=== PATIENT | female | born 1980 | race Hispanic/Latino ===

== ENCOUNTER 2018-07-28 22:25 | Emergency (ER) | payer OTHER, MEDICAID, SELFPAY ==
--- NOTE | 2018-07-28 22:28 | ED_ITS ---
HPI - Chest Pain General Chief Complaint: Chest Pain Stated Complaint: CHEST PAIN Time Seen by Provider: 07/28/18 22:27 Source: patient and family Mode of arrival: ambulatory Limitations: no limitations History of Present Illness HPI narrative: 37-year-old female morbidly obese, smoker with history of hypertension and strong cardiac history of young people in her family presents with sudden-onset left shoulder and arm pain that started about 15 minutes prior to arrival. She denies provocation or palliation. Denies dizziness, weakness or lightheadedness. She has had no nausea or vomiting. She denies shortness of breath or diaphoresis. She denies any history of the same. She denies recent travel or use control. She denies any recent overuse type injury. MD complaint: chest pain Onset (ago): minute(s) Duration: constant Onset: during rest Pain location: left chest Severity: mild Quality: aching Pain radiation: LUE Relieving factors: nothing Exacerbating factors: nothing Treatments prior to arrival chest pain: none Related Data Allergies Allergy/AdvReac Type Severity Reaction Status Date / Time No Known Drug Allergies Allergy Verified 07/28/18 23:52 Review of Systems Constitutional Denies chills, Denies fever(s), Denies lethargy and Denies weakness Eyes Denies change in vision, Denies eye discharge, Denies irritation and Denies loss of vision ENT Ears, Nose, Mouth, and Throat: Denies change in voice, Denies neck pain and Denies sore throat Cardiovascular Reports chest pain, Denies irregular heart rhythm, Denies lightheadedness, Denies palpitations, Denies dyspnea, Denies dyspnea on exertion and Denies orthopnea Respiratory Denies cough, Denies dyspnea, Denies dyspnea on exertion and Denies wheezing Gastrointestinal Gastrointestinal: Denies abdominal pain, Denies change in bowel habits, Denies diarrhea, Denies nausea and Denies vomiting Genitourinary Denies hematuria, Denies flank pain, Denies urinary incontinence and Denies urinary urgency Musculoskeletal Denies neck pain Integumentary/Breasts Denies pruritus, Denies erythema, Denies rash and Denies wounds Neurologic Denies confusion, Denies loss of vision and Denies weakness Psychiatric Denies anxiety, Denies confusion, Denies depression, Denies homicidal ideation and Denies suicidal ideation Endocrine Denies palpitations Hematologic/Lymphatic Denies easy bruising Allergic/Immunologic Denies wheezing Exam Narrative Exam Narrative: GENERAL: 37M, morbidly obese, AOx3. This is a well-nourished, well-developed patient, in mild distress. HEAD: Atraumatic. Normocephalic. No temporal or scalp tenderness. EYES: Pupils equal round and reactive. Extraocular motions intact. No scleral icterus. No injection or drainage. ENT: Nose without bleeding, purulent drainage or septal hematoma. Throat without erythema, tonsillar hypertrophy or exudate. Uvula midline. Airway patent. NECK: Trachea midline. No JVD or lymphadenopathy. Supple, nontender, no meningeal signs. CARDIOVASCULAR: Regular rate and rhythm without murmurs, gallops, or rubs. RESPIRATORY: Clear to auscultation. Breath sounds equal bilaterally. No wheezes, rales, or rhonchi. GASTROINTESTINAL: Abdomen soft, non-tender, nondistended. No hepato- splenomegaly, or palpable masses. No guarding. EXTREMITIES: No clubbing, cyanosis, or edema. No joint tenderness, effusion, or edema noted. BACK: Nontender without deformity or crepitance. No flank tenderness. NEURO: AOx3. SKIN: No rash or erythema. Initial Vital Signs Initial Vital Signs: Vital Signs Temperature 98.7 F 07/28/18 22:30 Pulse Rate 89 07/28/18 22:30 Respiratory Rate 18 07/28/18 22:30 Blood Pressure 144/68 H 07/28/18 22:30 Pulse Oximetry 100 07/28/18 22:30 Scores HEART Score Heart Score history: Slightly Suspicious Heart Score EKG: Normal Heart Score Age: < 45 years old Heart Score risk factors: > 3 risk factors or hx of atherosclerotic disease Heart Score troponin: < or = to normal limit Heart Score Total: 2 Course Orders Ordered: ED Orders 07/28/18 22:33 XR chest 1V Stat EKG-12 Lead Stat 07/28/18 22:40 Complete Blood Count AUTO DIFF Stat Comprehensive Metabolic Panel Stat Lipase Stat Troponin & CK Cardiac Panel Stat 07/29/18 00:31 Troponin I Stat Sodium Chloride (Normal Saline 0.9%) 1,000 mls @ 150 mls/hr IV CONT CHAKA Last Infusion: 07/29/18 01:28 Dose: 0 mls/hr Admin: 07/28/18 23:10 Dose: 150 mls/hr Nitroglycerin (Nitrostat) 0.4 mg SL [id number] PRN PRN Reason: Chest Pain Last Admin: 07/28/18 23:09 Dose: 0.4 mg Discontinued Medications Acetaminophen (Tylenol) 975 mg PO NOW ONE Stop: 07/28/18 23:52 Last Admin: 07/28/18 23:53 Dose: 975 mg Albuterol/Ipratropium (Duoneb) 3 ml INH NOW ONE Stop: 07/28/18 23:39 Last Admin: 07/28/18 23:54 Dose: Not Given Aspirin (Aspirin Chew) 324 mg PO NOW ONE Stop: 07/28/18 22:33 Last Admin: 07/28/18 22:50 Dose: 324 mg Ondansetron HCl (Zofran) 4 mg IV NOW ONE Stop: 07/28/18 23:52 Last Admin: 07/28/18 23:53 Dose: 4 mg Reevaluation(s) Reevaluation #1: no change with nitro Time: 23:30 Vital Signs - 8 hr 07/28/18 22:30 07/28/18 22:56 07/28/18 23:09 Temperature 98.7 F Pulse Rate 89 81 81 Respiratory Rate 18 20 Blood Pressure 144/68 H 110/75 Blood Pressure [Left Arm] 130/59 L Pulse Oximetry 100 98 07/28/18 23:24 07/28/18 23:30 07/29/18 00:00 Temperature Pulse Rate 84 79 70 Respiratory Rate 21 20 Blood Pressure 110/57 L Blood Pressure [Left Arm] 113/59 L 124/69 Pulse Oximetry 98 98 07/29/18 00:46 07/29/18 01:00 07/29/18 01:15 Temperature Pulse Rate 69 76 73 Respiratory Rate 21 19 14 Blood Pressure Blood Pressure [Left Arm] 127/69 96/51 L Pulse Oximetry 98 99 99 MDM - Chest Pain Lab Data Attestation: I reviewed the patient's lab results. Result diagrams: 07/28/18 22:40 07/28/18 22:40 Lab Results 07/28/18 07/28/18 07/29/18 Range/Units 22:40 22:40 00:31 WBC 7.1 (4.5-11.0) X10^3/uL RBC 4.45 (4.0-5.2) X10^6/uL Hgb 13.6 (12.0-16.0) g/dL Hct 39.2 (36-46) % MCV 88.1 (80-100) fL MCH 30.5 (26-34) PG MCHC 34.6 (30-36) % RDW 13.8 (11.6-14.8) % Plt Count 159 (150-400) X10^3/uL Neut % (Auto) 57.6 (50-75) % Lymph % (Auto) 30.8 (25-40) % [place] % (Auto) 6.7 (3-14) % Eos % (Auto) 4.0 (2-4) % Baso % (Auto) 0.9 (0-2) % Neut # (Auto) 4100 (2571-8610) /uL Lymph # (Auto) 2200 (7230-6656) /uL [place] # (Auto) 500 (0-900) /uL Eos # (Auto) 300 (0-450) /uL Baso # (Auto) 100 (0-100) /uL Sodium 137 (137-145) mmol/L Potassium 3.4 (3.4-5.1) mmol/L Chloride 106 (98-107) mmol/L Carbon Dioxide 24 (22-32) mmol/L BUN 10 (7-17) mg/dL Creatinine 0.70 (0.52-1.04) mg/dL Estimated GFR > 60.0 (>60) mL/min BUN/Creatinine Ratio 14.3 (6-22) Glucose 90 (70-100) mg/dL Calcium 8.8 (8.4-10.2) mg/dL Total Bilirubin 0.7 (0.2-1.3) mg/dL AST 41 H (14-36) IU/L ALT 49 (9-52) IU/L Alkaline Phosphatase 93 (38-126) U/L Total Creatine Kinase 53 (30-135) U/L CK-MB (CK-2) TNP CK-MB (CK-2) Rel Index TNP Troponin I < 0.012 < 0.012 (0.01-0.034) ng/mL Total Protein 7.3 (6.3-8.2) g/dL Albumin 4.1 (3.5-5.0) g/dL Globulin 3.2 (1.7-4.1) g/dL Albumin/Globulin Ratio 1.3 (1.0-2.8) Lipase 43 (23-300) U/L ECG Data Attestation: I personally reviewed and interpreted this ECG as follows: Prior ECG tracings: not available for review Interpretation: EKG is normal sinus rhythm rate [ 70s] and free of any signs of ischemia or ectopy. No ST segmental elevation or depression. No T wave inversi ons MDM Narrative Medical decision making narrative: Multiple etiologies for patient's symptoms considered including: [Myocardial infarction versus musculoskeletal pain versus costochondritis versus pneumonia versus other] Patient's symptoms improved or duration of stay with above-stated therapies. Findings and discharge diagnosis discussed with patient/family followed by verbalization of understanding Return precautions discussed with patient/family whom verbalize understanding. Discharge Plan Departure Patient Disposition: Home Clinical Impression: Atypical chest pain Discharge Date/Time: 07/29/18 01:32 Interventions: ED Discharge Assessment Last Done: 07/29/18 01:30 Instructions: DI for Atypical Chest Pain Activity Restrictions/Additional Instructions: *You have been diagnosed with [ atypical chest pain ] *What to do: *Take medications as directed *Follow up with your primary care provider in 2-3 days, call for an appointment. Let them know you were seen in the Emergency Department and that we ask that you be seen in follow up *Return to ER if you should have any new, worsening or concerning symptoms
[2018-07-28 22:30] VITALS: BP 144/68; PULSE 89; RESP 18; TEMP 37.1; O2SAT 100; BMI 45.4
--- NOTE | 2018-07-28 22:33 | DI.RAD.S_ITS ---
PROCEDURE: XR CHEST 1V INDICATIONS: chest pain TECHNIQUE: One view of the chest was acquired. COMPARISON: [facility], CR, XR CHEST 1 VIEW, 06/30/2018, 21:10. FINDINGS: Surgical changes and devices: Multiple monitoring leads project of the chest. Lungs and pleura: The mild prominence of pulmonary vasculature bilaterally. Mild hazy bilateral perihilar and right basilar pulmonary opacities noted. No pleural effusion or pneumothorax. Lungs are hypoinflated. Mediastinum: Mediastinal contours appear normal. Heart size is normal. Bones and chest wall: No suspicious bony lesions. Overlying soft tissues appear unremarkable. IMPRESSION: Mild perihilar and right basilar pulmonary opacities most consistent with atelectasis, less likely pneumonia. Dictated by: Khai Rutherford M.D. on 07/29/2018 at 5:50 Approved by: Khai Rutherford M.D. on 07/29/2018 at 5:52
[2018-07-28] MEDS: ASPIRIN 81 MG TAB 324 MG PO (22:50)
[2018-07-28 22:52] LABS: Add Manual Diff / Slide Review NO; Basophils Absolute Auto 100 /uL (0-100); Basophils Percent Auto 0.9 % (0-2); Eosinophils Absolute Auto 300 /uL (0-450); Hematocrit 39.2 % (36-46); Hemoglobin 13.6 g/dL (12.0-16.0); Lymphocytes Absolute Auto 2200 /uL (1100-4500); Lymphocytes Percent Auto 30.8 % (25-40); Mean Corpuscular HGB Conc 34.6 % (30-36); Mean Corpuscular Hemoglobin 30.5 PG (26-34); Mean Corpuscular Volume 88.1 fL (80-100); Monocytes Absolute Auto 500 /uL (0-900); Monocytes Percent Auto 6.7 % (3-14); Neutrophils Absolute Auto 4100 /uL (1500-7000); Neutrophils Percent Auto 57.6 % (50-75); Platelet Count 159 X10^3/uL (150-400); Red Blood Cell Count 4.45 X10^6/uL (4.0-5.2); Red Cell Distribution Width 13.8 % (11.6-14.8); White Blood Cell Count 7.1 X10^3/uL (4.5-11.0)
[2018-07-28 22:56] VITALS: BP 130/59; PULSE 81; RESP 20; O2SAT 98
[2018-07-28 22:58] LABS: Alanine Aminotransferase 49 IU/L (9-52); Albumin 4.1 g/dL (3.5-5.0); Albumin Globulin Ratio 1.3 (1.0-2.8); Alkaline Phosphatase 93 U/L (38-126); Aspartate Aminotransferase 41 IU/L (14-36); BUN Creatinine Ratio 14.3 (6-22); Bilirubin Total 0.7 mg/dL (0.2-1.3); Blood Urea Nitrogen 10 mg/dL (7-17); Calcium 8.8 mg/dL (8.4-10.2); Carbon Dioxide 24 mmol/L (22-32); Chloride 106 mmol/L (98-107); Creatine Kinase 53 U/L (30-135); Estimated Glomerular Filt Rate > 60.0 mL/min (>60); Globulin 3.2 g/dL (1.7-4.1); Glucose 90 mg/dL (70-100); HEMOLYSIS < 15 (0-50); Lipase 43 U/L (23-300); Potassium 3.4 mmol/L (3.4-5.1); Sodium 137 mmol/L (137-145); Total Protein 7.3 g/dL (6.3-8.2)
[2018-07-28 23:09] VITALS: BP 110/75; PULSE 81
[2018-07-28] MEDS: NITROGLYCERIN 0.4 MG SL TAB SL (23:09)
[2018-07-28 23:10] LABS: Troponin I < 0.012 ng/mL (0.01-0.034)
[2018-07-28] MEDS: SODIUM CHLORIDE 0.9% 1,000 ML 150 ML IV (23:10)
[2018-07-28 23:24] VITALS: BP 110/57; PULSE 84
--- NOTE | 2018-07-28 23:25 | PC.NURSE ---
provider notified of reassesment of nitro and pt blood pressure. Provider stated hold nitro. second and third nitro held.
[2018-07-28 23:30] VITALS: BP 113/59; PULSE 79; RESP 21; O2SAT 98
--- NOTE | 2018-07-28 23:49 | PC.NURSE ---
pt requested medication for nausea and nitro headache. Provider notified, orders received.
[2018-07-28] MEDS: ONDANSETRON 4 MG/2 ML INJ IV (23:53)
[2018-07-28] MEDS: ACETAMINOPHEN 325 MG TABLET 975 MG PO (23:53)
[2018-07-29] VITALS: BP 124/69; PULSE 70; RESP 20; O2SAT 98
--- NOTE | 2018-07-29 00:44 | PC.NURSE ---
drawn by lab
[2018-07-29 00:46] VITALS: BP 127/69; PULSE 69; RESP 21; O2SAT 98
[2018-07-29 01:00] VITALS: PULSE 76; RESP 19; O2SAT 99
[2018-07-29 01:05] LABS: Troponin I < 0.012 ng/mL (0.01-0.034)
[2018-07-29 01:15] VITALS: BP 96/51; PULSE 73; RESP 14; O2SAT 99
== END 2018-07-29 01:32 | disposition home or self-care (01) ==
PROVIDERS: Emergency Provider Emergency Medicine
DX: R07.89 Other chest pain (principal); M25.512 Pain in left shoulder; M79.602 Pain in left arm
CPT/HCPCS: 36415; 36591; 71045; 80053; 82550; 83690; 84484; 85025; 93005; 96361; 96374; 99284; 99285; J2405